=== PATIENT | male | born 1975 | race Two or more races ===

== ENCOUNTER 2020-09-24 18:39 | Emergency (ER) | payer SELFPAY ==
[~2020-09-24] VITALS: Ht 165.1 cm; Wt 94.6 kg
--- NOTE | 2020-09-24 19:02 | NUR ---
EKG IN TRIAGE
--- NOTE | 2020-09-24 19:15 | NUR ---
PT STATES HE CAME FROM THE [facility] WHERE HE WAS GETTING A "CHECK UP", AND "THEY SAID HE WAS HAVING A HEART ATTACK AND SENT HIM HERE". PT STATES HE FEELS FINE NOW, DENIES ANY SYMPTOMS. HX HTN, ON MULTIPLE MEDICATIONS. BP ELEVATED NOW, 170s SYSTOLIC. PT STATES HE DIDN'T TAKE HIS MEDS THIS MORNING. SON AT BEDSIDE, TRANSLATING PER PT REQUEST.
[2020-09-24] MEDS ORDERED: LISI-167 PO (19:22)
[2020-09-24] MEDS ORDERED: HYDR25TA6 PO (19:22)
[2020-09-24] MEDS ORDERED: CHOL10003 PO (19:22)
[2020-09-24] MEDS ORDERED: ASPI81TA45 PO (19:22)
[2020-09-24] MEDS ORDERED: METF500T27 PO (19:22)
[2020-09-24] MEDS ORDERED: CLON0.1T22 PO (19:22)
--- NOTE | 2020-09-24 19:45 | NUR ---
PT AMBULATED TO BR WITHOUT DIFFICULTY.
--- NOTE | 2020-09-24 20:07 | NUR ---
PT TO RADIOLOGY VIA [facility].
[2020-09-24 20:42] LABS: BASOPHILS % (AUTO) 1 % (0-1); EOSINOPHILS % (AUTO) 1 % (1-7); LYMPHOCYTES % (AUTO) 36 % (22-44); MEAN CORPUSCULAR HEMOGLOBIN 27.3 pg (27.5-34.5); MEAN CORPUSCULAR HGB CONC 33.9 g/dL (33.2-36.2); MEAN PLATELET VOLUME 8.2 fL (7.4-10.4); MONOCYTES % (AUTO) 6 % (2-9); NEUTROPHILS % (AUTO) 56 % (42-75); PLATELET COUNT 289 x10^3/uL (130-400); RED BLOOD COUNT 4.87 x10^6/uL (4.38-5.82)
[2020-09-24 20:51] LABS: ALBUMIN 3.5 g/dL (3.4-5.0); ANION GAP 7 mmol/L (5-15); CALCIUM 8.9 mg/dL (8.5-10.1); CHLORIDE 106 mmol/L (98-107)
[2020-09-24 20:55] LABS: MD NO; TROPONIN I < 0.015 ng/mL (0.000-0.045)
--- NOTE | 2020-09-24 21:40 | NUR ---
D/C INSTRUCTIONS, MEDS & F/U APPT WITH PCP AND SUPERVISOR INSTRUMENT REPAIR FOR STRESS TEST RV'WD WITH PT AND SON, THEY VERBALIZE UNDERSTANDING. RX GIVEN X1. PT AMBULATED OUT OF ED WITHOUT DIFFICULTY.
[2020-09-24 21:41] VITALS: BP 149/90
== END 2020-09-24 21:45 | disposition home or self-care (01) ==
LOC: ED 19:40
DX: R07.89 Other chest pain (principal); R94.31 Abnormal electrocardiogram [ECG] [EKG]; I10 Essential (primary) hypertension; E11.9 Type 2 diabetes mellitus without complications
CPT/HCPCS: 36415; 71046; 80048; 82040; 84484; 85025; 93005; 99285